=== PATIENT | female | born 1975 | race Caucasian/White ===

== ENCOUNTER → 2020-08-14 10:22 | Outpatient (CLI) | payer OTHER, SELFPAY ==
--- NOTE | ~2020-08-14 | MM_ITS ---
EXAMINATION: MM screening [facility] BI w zach HISTORY: Screening mammogram TECHNIQUE: Craniocaudal and mediolateral oblique 3-D tomosynthesis images were obtained and synthetic 2-D images were generated. CAD analysis was submitted and interpreted. COMPARISON: 03/10/2019, 03/05/2018, 02/23/2014 BREAST PARENCHYMAL COMPOSITION: The breasts are heterogeneously dense, which may obscure small masses . FINDINGS: There is no evidence of suspicious mass, calcification, or architectural distortion to sugg est malignancy in either breast. There has been no suspicious interval change. IMPRESSION: 1. No mammographic evidence of malignancy. 2. Recommend routine screening mammography in one year. BI-RADS Category 1: Negative Reviewed, dictated and finalized at location A. ARCHITECT
== END ==
PROVIDERS: PCP Family Medicine; Visit Provider Obstetrics & Gynecology
DX: Z12.31 Encounter for screening mammogram for malignant neoplasm of breast (principal)
CPT/HCPCS: 77063; 77067

== ENCOUNTER 2023-11-13 07:16 | Outpatient (CLI) | payer OTHER, SELFPAY ==
--- NOTE | ~2023-11-13 | MM_ITS ---
EXAMINATION: SCREEN BREAST YAW - LEONORA Patient Name: Brianna Carney S. : 1975 DATE: 11/13/2023 INDICATION: Screening TECHNIQUE: Craniocaudal and mediolateral oblique 3-D Tomosynthesis images with generated synthetic 2- D images. CAD was submitted and interpreted. COMPARISON: 08/14/2020, 03/10/2019 bilateral screening mammogram examinations Breast parenchymal composition: There are scattered areas of fibroglandular density. FINDINGS: No suspicious mass or architectural distortion, malignant calcification, skin thickening or retraction or significant new or developing density is detected. IMPRESSION: BI-RADS Category 1: Negative Recommendation: Routine annual mammographic screening Reviewed, dictated and finalized at Location A. Reviewed, dictated and finalized at location A.
== END 2023-11-13 07:17 | disposition home or self-care (01) ==
LOC: ANHIMG 07:22
PROVIDERS: PCP Family Medicine; Visit Provider Physician Assistant Medical
DX: Z12.31 Encounter for screening mammogram for malignant neoplasm of breast (principal)
CPT/HCPCS: 77063; 77067

== ENCOUNTER 2025-01-18 08:11 | Outpatient (CLI) | payer OTHER, SELFPAY ==
--- NOTE | ~2025-01-18 | US_ITS ---
Abdominal Sonogram: Real-time sonographic imaging of the abdomen was performed. Clinical History: Abnormal serum enzyme levels Findings: The liver appears normal with no evidence of mass lesion or bile duct dilatation. Main por rosendo vein demonstrates normal direction of flow. The spleen is normal in size without evidence of foca l lesion. The gallbladder is well distended, and appears normal with no evidence of gallstone or wal l thickening. The common bile duct measures 3 mm. The visualized pancreas, aorta, and IVC are unrema rkable. The right kidney measures 9.8 cm in length and the left kidney measures 10.5 cm. There is n o hydronephrosis or renal calculus. Impression: Unremarkable abdominal ultrasound. Reviewed, dictated and finalized at location M. Impression: Unremarkable abdominal ultrasound.
== END 2025-01-18 08:12 | disposition home or self-care (01) ==
LOC: MICIMG 08:12
PROVIDERS: PCP Family Medicine; Visit Provider Nurse Practitioner Adult Health
DX: R74.8 Abnormal levels of other serum enzymes (principal)
CPT/HCPCS: 76700

== ENCOUNTER 2025-05-09 16:03 | Outpatient (CLI) | payer OTHER, SELFPAY ==
--- NOTE | ~2025-05-09 | MM_ITS ---
EXAMINATION: MM screening [facility] BI w zach HISTORY: Screening TECHNIQUE: Craniocaudal and mediolateral oblique 3-D tomosynthesis images were obtained and synthetic 2-D images were generated. CAD analysis was submitted and interpreted. COMPARISON: Comparison to multiple prior studies sequentially, with oldest reviewed study dated , 02/10/2014 BREAST PARENCHYMAL COMPOSITION: There are scattered areas of fibroglandular density. FINDINGS: There is no evidence of suspicious mass, calcification, or architectural distortion to suggest malignancy in either breast. IMPRESSION: 1. No mammographic evidence of malignancy. 2. Recommend routine screening mammography in one year. BI-RADS Category 1: Negative Reviewed, dictated and finalized at location B.
--- OUTSIDE RECORDS SUMMARY | 2025-05-09 17:04 | XMS_ITS | Clinical Summary ---
Author Organization [facility] Address [address] [place] [address] Care Team Providers Care Rotary Driller Name Role Phone Aquiles Ngo MD Primary Care Provider [phone] Allergies Active Allergy Reactions Criticality Noted Date Comments Ivabradine Rash Medium 06/02/2017 Sulfa Rash Medium 02/10/2025 Medications escitalopram (LEXAPRO) 20 mg tablet 12/16/19 20 Active metoprolol tartrate (LOPRESSOR) 25 mg immediate release tablet TAKE 1 TABLET TWICE A DAY (PLEASE CALL TO SCHEDULE APPOINTMENT FOR ADDITIONAL REFILLS) 180 tablet 3 01/08/20 21 Active semaglutide 0.25 mg or 0.5 mg (2 mg/3 mL) pen injector injection Inject 0.5 mg under the skin every 7 days 6 mL 02/16/20 24 Active naltrexone (DEPADE) 50 mg tabletIndications: Class 1 obesity due to excess calories without serious comorbidity with body mass index (BMI) of 30.0 to 30.9 in adult TAKE 1 TABLET DAILY 90 tablet 3 03/31/20 24 Active levothyroxine (SYNTHROID) 50 mcg tablet TAKE 1 TABLET ON THURSDAY THROUGH THURSDAY 6 DAYS A WEEK 78 tablet 3 09/12/19 25 Active busPIRone (BUSPAR) 15 mg tabletIndications: Acquired hypothyroidism TAKE 1 TABLET TWICE A DAY 180 tablet 3 12/13/19 25 Active buPROPion (WELLBUTRIN) 100 mg tabletIndications: Class 1 obesity due to excess calories without serious comorbidity with body mass index (BMI) of 30.0 to 30.9 in adult TAKE 1 TABLET TWICE A DAY 180 tablet 3 03/07/20 25 Active thyroid ([place] Thyroid) 90 mg tabletIndications: Acquired hypothyroidism Take 1 tablet (90 mg total) by mouth daily 90 tablet 1 03/31/20 25 Active Active Problems Problem Noted Date Diagnosed Date Class 1 obesity due to excess calories in adult 12/11/2022 Assessment & Plan (08/04/2023 3:20 PM SPECIAL AGENT IN CHARGE): Diet and exercise Continue bupropion and naltrexone Start Ozempic Samples provided. Assessment & Plan (03/31/2023 9:54 AM CDT): Chronic problem. Has not gained weight since last appointment. Denies any med SE from naltrexone & bupropion. Refilled meds. Discussed healthy diet and importance of regular physical activity (20- 30min/day, 150min/wk). Assessment & Plan (12/11/2022 4:40 PM CDT): Patient encouraged to work on low-calorie diet Patient encouraged to track calories and exercise activity with a smart phone up like my fitness pal or weight was Start on Wellbutrin 100 mg twice a day Naltrexone 50 mg daily Itching 02/26/2021 Assessment & Plan (02/26/2021 2:36 PM CDT): Check CBC, Advised her on taking benadryl Overweight (BMI 25.0-29.9) 09/26/2019 Overview (09/26/2019): Continue working on diet and exercise Will try Naltrexone as appetite suppressant. Assessment & Plan (02/16/2024 1:02 PM CDT): Chronic, with some improvement Continue semaglutide 0.5 mg weekly Samples provided Continue bupropion and naltrexone SVT (supraventricular tachycardia) 05/13/2017 Assessment & Plan (05/13/2017 1:05 PM CDT): Impression 1. Palpitations. Patient with documented narrow complex tachycardia. This is suspicious for an inappropriate sinus tachycardia, but SVT cannot be absolutely excluded. Patient will follow up with her director of land to ensure that thyroid dosing is appropriate, and possibly eliminate [place] Thyroid. Following this we will then plan for EPS. If inducible SVT then therapy guided by the results. If negative, then will initiate treatment for IST Plan EPS Patient will call to schedule Palpitations 03/02/2017 Assessment & Plan (03/02/2017 10:19 AM CDT): She describes palpitations that clinically sound as if they are most likely due to PVCs. Her resting EKG today is normal with normal intervals. I have asked her to wear an event monitor to better characterize. Ventricular function be assessed with a stress echo. She has been reassured that in the setting of his normal heart these are benign. Chest pain 03/02/2017 Assessment & Plan (03/02/2017 10:19 AM CDT): She has symptoms of exertional chest tightness worrisome for being from obstructive coronary disease. This is in the setting of family history of premature coronary disease as well as primary cardiomyopathy. Further evaluation with a stress echo is appropriate. Further recommendations will be forthcoming. Acquired hypothyroidism 02/12/2017 Assessment & Plan (12/14/2024 9:54 AM CDT): Chronic problem; status unknown. Clinically euthyroid. Currently taking levothyroxine 50mcg 6 days/wk & armour thyroid 90mg daily. Aware to take 1st thing in morning, 30-60 minutes before food/drink/other medications. Will update TFTs today. Verified that she uses [facility]. Aware to check results/results letter in [facility]. Will contact by phone if needed. Aware that if changes are made; that we will repeat labs in 2-3 months. Assessment & Plan (02/16/2024 1:01 PM CDT): Chronic, stable Continue thyroid 90 mg Assessment & Plan (08/04/2023 3:19 PM SPECIAL AGENT IN CHARGE): Chronic, well controlled Contineu Levothyroxine and [place] at current dose Assessment & Plan (03/31/2023 9:53 AM CDT): Chronic problem. Controlled for many years on levothyroxine 50mcg 6 days/wk & armour thyroid 90mg daily. Will update TFTs today. Verified that she uses [facility]. Aware to check results/results letter in [facility]rival. Will contact by phone if needed. Aware that if changes are made; that we will repeat labs in 2-3 months. Assessment & Plan (12/11/2022 4:39 PM CDT): Update TSH Continue levothyroxine and [place] Assessment & Plan (02/25/2022 1:22 PM CDT): Thyroid function tests, including TSH and free T4 were requested Will adjust dose of Levothyroxine accordingly . If there is a need to make changes, will recheck levels in 2-3 months. Instructions to patient on taking medication properly : in the morning, on an empty stomach , 1 h part from food and/or other meds. Assessment & Plan (02/26/2021 2:35 PM CDT): Thyroid function tests, including TSH and free T4 were requested Will adjust dose of Levothyroxine accordingly . If there is a need to make changes, will recheck levels in 2-3 months. Instructions to patient on taking medication properly : in the morning, on an empty stomach , 1 h part from food and/or other meds. Assessment & Plan (02/14/2020 1:28 PM CDT): Will check TSH and free T4 Will adjust dose of Levothyroxine accordingly . If there is a need to make changes, will recheck levels in 2-3 months. Instructions to patient on taking medication properly : in the morning, on an empty stomach , 1 h part from food and/or other meds. If any doses are missed, can take 2-3 tab together ,to make up for the missed dose; make sure at the end to the week, 7 tabs have been taken. Send 90 days Assessment & Plan (09/26/2019 4:33 PM SPECIAL AGENT IN CHARGE): Will check TSH and free T4, total T3 Will adjust dose of Levothyroxine accordingly and /or Amour accordingly If there is a need to make changes, will recheck levels in 2-3 months. Instructions to patient on taking medication properly : in the morning, on an empty stomach , 1 h part from food and/or other meds. Assessment & Plan (09/07/2018 11:32 AM SPECIAL AGENT IN CHARGE): Will check TSH and free T4 Will adjust dose of Levothyroxine accordingly . If there is a need to make changes, will recheck levels in 2-3 months. Instructions to patient on taking medication properly : in the morning, on an empty stomach , 1 h part from food and/or other meds. Assessment & Plan (08/27/2017 10:05 AM SPECIAL AGENT IN CHARGE): Check TSH, free T4, total T3 Adjust dose of Levothyroxine and / or Amour accordingly . Instructions to patient on taking medication properly Assessment & Plan (02/12/2017 9:58 AM CDT): Check TSH, free T4 Adjust dose of meds accordingly . Instructions to patient on taking medication properly Resolved Problems Problem Noted Date Diagnosed Date Resolved Date Vitamin D deficiency 02/12/2017 021 Assessment & Plan (02/12/2017 9:58 AM CDT): Check vit D levels Adjust dose of med if indicated Encounters Date Type Department Care Team Description 02/20/2025 Results Follow-Up [facility] Obstetrical Gynecology [address] [place] [address] Maximo Gonzales MD Pap and High Risk HPV and Genotyping (Cytology Component) 02/10/2025 4:28 PM CDT - 02/10/2025 11:59 PM CDT Hospital Encounter [facility] [address] [place] [address] Cervical cancer screening Discharge Disposition: Discharge to home or self care 02/10/2025 9:07 AM CDT - 02/10/2025 11:59 PM [place] [address] Discharge Disposition: Discharge to home or self care 02/10/2025 9:00 AM CDT Office Visit [facility] Obstetrical Gynecology [address] [place] [address] Maximo Gonzales MD Encounter for other general counseling or advice on contraception (Primary Dx); Cervical cancer screening from Last 3 Months Surgical History Surgery Date Site/Laterality Comments SECTION Medical History Medical History Date Comments Disorder of thyroid Migraine Anxiety and depression Family History Medical History Relation Name Comments Diabetes Brother 1 Heart disease Brother 2 Heart disease Father Diabetes Mother Heart disease Mother Breast cancer Neg Hx Ovarian cancer Neg Hx Prostate cancer Neg Hx Relation Name Status Comments Brother 1 Brother 2 Father Mother Social History Tobacco Use Types Packs/Day Years Used Date Smoking Tobacco: Former Cigarettes Smokeless Tobacco: Never Alcohol Use Standard Drinks/Week Comments Yes 1 (1 standard drink = 0.6 oz pur e alcohol) occasional AUDIT-C Answer Date Recorded Q1: How often do you have a drink containing alcohol? Never 02/16/2024 Q2: How many drinks containi ng alcohol do you have on a typical day when you are drinking? Patient does not drink Q3: How often do you have si x or more drinks on one occasion? Never 02/16/2024 PHQ-2 Answer Date Recorded PHQ-2 Total Score (If total score is 3 or more points, staff should administer the PHQ-9) 0 02/16/2024 PHQ-9 Answer Date Recorded PHQ-9 Total Score 0 02/16/2024 Comments No Sex and Gender Information Value Date Recorded Sex Assigned at Not on file Legal Sex Female 3:57 AM SPECIAL AGENT IN CHARGE Gender Identity Not on file Sexual Orientation Not on file Obstetrics History Para Term AB IAB SAB Ectopic Multiple Livin g Live Births 2 2 Date Outcome GA Total Labor Labor/2nd/3rd Weight Sex Type Anes PTL Gisella A1 A5 Name Clin Para Para Comments Menarche- 12 First delivery-21 Last Filed Vital Signs Vital Sign Reading Time Taken Comments Blood Pressure 118/70 02/10/2025 8:57 AM CDT Pulse 76 12/14/2024 9:16 AM CDT Temperature - - Respiratory Rate 16 12/14/2024 9:16 AM CDT Oxygen Saturation - - Inhaled Oxygen Concentration - - Weight 66.2 kg (146 lb) 02/10/2025 8:57 AM CDT Height 170.2 cm (5' 7) 02/10/2025 8:57 AM CDT Body Mass Index 22.87 02/10/2025 8:57 AM CDT Plan of Treatment Health Maintenance Due Date Last Done Comments Breast Cancer Screening-Mammogram 1975 Colon Cancer Screening-Colonoscopy 1975 Hepatitis C Screening 1975 DTaP/Tdap/Td Vaccine (1 - Tdap) 1984 Hepatitis B Screening 1991 Regular Well Visit/Exam 18-64 1991 Zoster Vaccine (1 of 2) 2023 Depression Screening 02/15/2025 02/16/2024, 02/16/2024, 12/11/2022, Additional history exists Influenza Vaccine (#1) 2025 Cervical Cancer Screening 02/10/2026 02/10/2025, Pneumococcal vaccine <65 Aged Out No longer eligible based on patient's age to complete this topic Procedures Procedure Name Priority Date/Time Associated Diagnosis Comments PAP AND HIGH RISK HPV, REFLEX TO GENOTYPING Routine 02/10/2025 9:07 AM CDT Cervical cancer screening HIGH RISK HPV DNA DETECTION WITH GENOTYPING Routine 02/10/2025 9:07 AM CDT Cervical cancer screening from Last 3 Months Results * High Risk HPV DNA Detection with Genotyping (Molecular component) (02/10/2025 9:07 AM CDT) HPV HR 16 Not Detected Not Detected [facility] Comment:Testing performed by : [facility], [address] [facility]., [address] HPV HR 18 Not Detected Not Detected MARY JANE CARRILLO Comment:Testing performed by : [facility], [address] [facility]., [address] HPV HR Non 16/18 Not Detected Not Detected MARY JANE CARRILLO Comment: Interpretive Data Nucleic acid amplification for detection of high-risk Human Papilloma virus (HPV) is performed by the [facility] [employer] 6800 HPV test. This assay specifically detects HPV-16 and HPV-18 genotypes. The following HPV genotypes are detected as high-risk HPV: HPV-31, 33, 35, ,39, 45, 51, 52, 56, 58, 59, 66, and 68. This assay has been approved by the [place] Food and Drug Administration for detection of HPV in cervical specimens collected by a physician using an endocervical brush/spatula or cervical broom and placed in the ThinPrep Pap Test PreservCyt collection containers. The performance characteristics of this test have been verified by the [facility] Molecular Infectious Disease laboratory. Correlate with separately reported cytology results, as applicable. Interpretive data last revised 23 Testing performed by: [facility], [address] [facility]., [address] Endocervical 02/10/2025 9:07 AM CDT 02/14/2025 11:43 AM CDT Narrative AMRY JANE - 02/14/2025 10:37 PM CDT Clinical history and diagnosis->screen Number of vials->1 Testing type->Screening Last menstrual period (date if known)->IUD Contraceptive use->IUD Maximo Gonzales MD LAB BODY FLUIDS AND STO OLS ORDERABLES Final Result [facility] [address] Department [place] [address] [facility] * Pap and High Risk HPV and Genotyping (Cytology Component) (02/10/2025 9:07 AM CDT) Endocervical (Pap test) 02/10/2025 9:07 AM CDT 02/13/2025 6:17 PM CD[address]arrative [facility] - 02/17/2025 3:38 PM CDT EPIC results best viewed via link to PDF [facility] of Surgical Pathology [address] [place] [address] Note to Patients: This report may contain a detailed description of human tissue sent by a health care provider to the laboratory for pathologic evaluation. The content of this report is essential for diagnosis and may provide important critical findings. This information may be unfamiliar to patients to review without a medical professional present. It is advised that the patient review this report in the presence of a health care provider who can answer questions and explain the details. CYTOPATHOLOGY REPORT FINAL Patient Name: BEAR BLANCO Gender: F : 1975 (Age: 49) Address: [address] [place] [id number] Hospital #: [id number] Service: UNKNOWN Location: Patient Type: [facility] SPECIMEN Taken: 02/10/2025 Received: 02/13/2025 Accessioned: 02/13/2025 Reported: 02/17/2025 Physician(s): Maxiom Gonzales M.D. FINAL INTERPRETATION SOURCE OF SPECIMEN Liquid based Thin Prep pap with HPV: STATEMENT OF ADEQUACY - Satisfactory for evaluation - Endocervical cells/transformation zone sample present GENERAL CATEGORIZATION: - Negative for squamous intraepithelial lesion or malignancy Comments (Normal-Negative for High Risk HPV) HPV HR 16- Not detected HPV HR 18-Not detected HPV HR non 16/18- Not detected Interpretive Data Nucleic acid amplification for detection of high-risk Human Papilloma virus (HPV) is performed by the [facility] 6800 HPV test. This assay specifically detects HPV- 16 and HPV-18 genotypes. The following HPV genotypes are detected as high-risk HPV: HPV-31, 33, 35, 39, 45, 51, 52, 56, 58, 59, 66, and 68. This assay has been approved by the [place] Food and Drug Administration for detection of HPV in cervical specimens collected by a physician using an endocervical brush/spatula or cervical broom and placed in the ThinPrep Pap Test PreservCyt collection containers. The performance characteristics of this test have been verified by the [facility] Molecular Infectious Disease laboratory. Correlate with reported cytology results, as applicable. Interpretive data last revised 02/20/23 ml/02/17/2025 15:38 Luisa Ball MS, CT (ASCP) Report Electronically Reviewed and Signed Out By Luisa Quinn MS, CT (ASCP) 02/17/2025 15:38:40 Cervicovaginal Cytology (Pap Test) Disclaimer: The Pap test is a screening test used to detect cervical cancer and its precursors; it is not a diagnostic procedure. False negative and false positive results do occur. Pap test results should be interpreted in the context of pertinent clinical information and biopsy results as indicated. [facility] Clinical Laboratory Improvement Amendments (CLIA) mandate that cytologic and histologic results be correlated for laboratory senior quality control inspector & improvement standards. FOR ALL HIGH-GRADE CASES we request submission of follow-up histological material and/or reports that have not been previously provided so that we may fulfill said required standards. Gross Description A. Liquid based Thin Prep pap with HPV: Cervical/vaginal - Screening ThinPrep Clinical Diagnosis and History Last Menstrual Period: IUD Contraceptive History: IUD The patient is a 49 year old female with screening. Report Images and scanned documents, if included only viewable in PDF version The performance characteristics of some immunohistochemical stains, in-situ hybridization and fluorescence in-situ hybridization tests and immunophenotyping by flow cytometry cited in this report (if any) were determined by the Surgical Pathology Department at [facility] as part of an ongoing software quality analyst program and in compliance with federally mandated regulations drawn from the Clinical Laboratory Improvement Act of 1988 (CLIA '88). Some of these tests rely on the use of analyte specific reagents and are subject to specific labeling requirements by the [place] Food and Drug Administration. Such diagnostic tests may only be performed in a facility that is certified by the Department of Health and Human Services as a high complexity laboratory under CLIA '88. The FDA has determined that such clearance or approval is not necessary. This test is used for clinical purposes. It should not be regarded as investigational or for research. Nevertheless, federal rules concerning the medical use of analyte specific reagents require that the following disclaimer be attached to the report: This test was developed and its performance characteristics determined by the Surgical Pathology Department of [facility]. It has not been cleared or approved by the [place]. S. Food and Drug Administration. Maximo Gonzales MD LAB CYTOLOGY ORDERABLES Final Result [facility]OLOGY [facility] from Last 3 Months Insurance [address] [address] [place] [id number] [facility] [employer] [facility] H[facility]/PPO Address: [place] [address] [address] [facility] [address] [place] [phone] [facility] [employer] [facility]/PPO [place] [address] [facility] [employer] [facility] H[facility]/PPO Address: [facility] [address] [place] [address] Care Teams Rotary Driller Relationship Specialty Start Date End Date Aquiles Ngo MD PCP - General 03/31/16
== END 2025-05-09 16:04 | disposition home or self-care (01) ==
PROVIDERS: PCP Family Medicine; Visit Provider Family Medicine
DX: Z12.31 Encounter for screening mammogram for malignant neoplasm of breast (principal)
CPT/HCPCS: 77063; 77067